=== PATIENT | male | born 2000 ===

== ENCOUNTER 2018-09-03 14:32 | Emergency (ER) | payer SELFPAY ==
[~2018-09-03 14:32] MED LIST: ACEC5L PO; AMO250L PO; NO MEDS
--- NOTE | 2018-09-03 15:16 | ER Report ---
History and Physical Time Seen By MD: 15:15 Hx. of Stated Complaint: patient reports numbness in the extremities, and he can "feel my heart vibrating" Has been going on for about a week but got worse when doing PT HPI/ROS CHIEF COMPLAINT: dizzy, sob, paresthesias HISTORY OF PRESENT ILLNESS: PT was running today in PT and felt sob, dizzy, blurred vision, heart palpating, and then numbness to hands. PT then felt his a cuauhtemoc were heavy and hard to move. Pt does run in PT often so this was new. Pt was sick the last week with runny nose and cough. no fevers. Pt states his burred vision, dizziness has gone. Pts hands are "almost all better... I still feel some tinging in pinkys". Pt has no cardiac or pulmonary hx. pt denies pain in legs. REVIEW OF SYSTEMS: Constitutional: No fever, no chills. Eyes: No discharge, blurred vision ENT: No sore throat. Cardiovascular: No chest pain, + palpitations. Respiratory: No cough, + shortness of breath. Gastrointestinal: No abdominal pain, no vomiting. Genitourinary: No hematuria. Musculoskeletal: No back pain. Skin: No rashes. Neurological: No headache, + dizziness, parathesias b/l extremities Allergies: Coded Allergies: No Known Drug Allergies (Verified Allergy, Mild, 06/06/07) Home Meds Reported Medications Acetaminophen/Codeine (Tylenol Codeine Elixir) 5 Ml Elix, 5 ML PO Q4H, #1 0 Refills 1 TEASPOON EVERY 4 HOURS NEEDED FOR PAIN 06/06/07 Amoxicillin (Amoxil) 250 Mg/5 Ml Susp, 0 PO Q8H for 10 Days 9ml THREE TIMES A DAY FOR 10 DAYS 06/06/07 [No Meds] No Conflict Check 06/06/07 Past Medical/Surgical History Pmhx and Pshx: pt denies Reviewed Nurses Notes: Yes Old Medical Records Reviewed: Yes Hx Smoking: No Hx Alcohol Use: No Constitutional Vital Sign - Last 24 Hours 09/03/18 09/03/18 09/03/18 09/03/18 14:36 14:36 14:53 14:59 Temp 98.3 Pulse 133 Resp 16 B/P (MAP) 115/99 115/99 (104) 64/48 (53) 86/56 (66) Pulse Ox 93 O2 Delivery Room Air 09/03/18 09/03/18 09/03/18 09/03/18 15:00 15:02 15:30 15:32 Pulse 109 105 Resp 11 18 B/P (MAP) 89/66 (74) 104/67 (79) Pulse Ox 93 90 09/03/18 09/03/18 09/03/18 09/03/18 15:37 15:52 16:00 16:07 Pulse 94 104 88 Resp 11 12 11 B/P (MAP) 101/69 (80) Pulse Ox 92 93 96 09/03/18 09/03/18 09/03/18 09/03/18 16:22 16:30 16:37 16:52 Pulse 92 90 92 Resp 15 14 10 B/P (MAP) 110/76 (87) Pulse Ox 97 95 96 09/03/18 09/03/18 09/03/18 09/03/18 17:00 17:07 17:22 17:23 Pulse 97 95 93 Resp 8 10 16 B/P (MAP) 108/76 (87) Pulse Ox 97 95 97 09/03/18 09/03/18 09/03/18 09/03/18 17:30 17:38 17:53 18:00 Pulse 92 97 92 Resp 16 6 B/P (MAP) 118/69 (85) Pulse Ox 95 96 09/03/18 18:00 Pulse 92 B/P (MAP) 107/75 (86) Physical Exam General Appearance: The patient is alert, has no immediate need for airway protection and no signs of toxicity. Eyes: Pupils equal and round no pallor or injection, EOMI ENT: no pharyngeal erythema or exudates, Mucous membranes are moist Respiratory: There are no retractions, lungs are clear to auscultation. Cardiovascular: + tachy, pulses are equal and symmetrical Gastrointestinal: Abdomen is soft and non tender, no masses, bowel sounds normal, no guarding, no rigidity or rebound Neurological: Cranial nerves II-XII grossly intact, no sensory or motor loss Skin: Warm and dry, no rashes. Musculoskeletal: Neck is supple non tender, no vertebral tenderness Extremities are nontender, non swollen and have full range of motion. DIFFERENTIAL DIAGNOSIS: After history and physical exam differential diagnosis was considered for hyperventilation, dehydration, pneumonia, bronchitis, electrolyte abnl, arrhythmia Medical Decision Making Data Points Result Diagram: 09/03/18 1450 09/03/18 1708 Laboratory Hematology Test 09/03/18 14:50 09/03/18 17:08 Red Blood Count 5.67 M/uL (4.00-5.60) Mean Corpuscular Volume 87.6 fL (80.0-96.0) Mean Corpuscular Hemoglobin 30.2 pg (26.0-33.0) Mean Corpuscular Hemoglobin Concent 34.5 g/dL (32.0-36.0) Red Cell Distribution Width 12.7 % (11.5-14.5) Mean Platelet Volume 7.7 fL (7.2-11.1) Neutrophils (%) (Auto) 67.9 % (39.4-72.5) Lymphocytes (%) (Auto) 24.9 % (17.6-49.6) Monocytes (%) (Auto) 6.1 % (4.1-12.4) Eosinophils (%) (Auto) 0.6 % (0.4-6.7) Basophils (%) (Auto) 0.5 % (0.3-1.4) Nucleated RBC Relative Count (auto) 0.0 /100WBC Neutrophils # (Auto) 5.7 K/uL (2.0-7.4) Lymphocytes # (Auto) 2.1 K/uL (1.3-3.6) Monocytes # (Auto) 0.5 K/uL (0.3-1.0) Eosinophils # (Auto) 0.0 K/uL (0.0-0.5) Basophils # (Auto) 0.0 K/uL (0.0-0.1) Nucleated RBC Absolute Count (auto) 0.00 K/uL Magnesium Level 2.0 mg/dl (1.7-2.2) Total Creatine Kinase 329 U/L (55-170) Sodium Level 139 mmol/L (137-145) Potassium Level 3.4 mmol/L (3.5-5.0) Chloride Level 107 mmol/L (98-107) Carbon Dioxide Level 25 mmol/L (22-30) Blood Urea Nitrogen 10 mg/dl (9-21) Creatinine 1.10 mg/dl (0.66-1.25) Glomerular Filtration Rate Calc > 60.0 Random Glucose 79 mg/dl (75-110) Calcium Level 8.3 mg/dl (8.4-10.2) Total Bilirubin 0.7 mg/dl (0.2-1.3) Aspartate Amino Transf (AST/SGOT) 50 U/L (0-35) Alanine Aminotransferase (ALT/SGPT) 107 U/L (0-56) Alkaline Phosphatase 63 U/L (0-126) Total Protein 6.4 g/dl (6.3-8.2) Albumin 3.9 g/dl (3.5-5.0) Chemistry Test 09/03/18 14:50 09/03/18 17:08 White Blood Count 8.4 k/uL (4.5-11.0) Red Blood Count 5.67 M/uL (4.00-5.60) Hemoglobin 17.1 g/dL (14.0-18.0) Hematocrit 49.7 % (42.0-52.0) Mean Corpuscular Volume 87.6 fL (80.0-96.0) Mean Corpuscular Hemoglobin 30.2 pg (26.0-33.0) Mean Corpuscular Hemoglobin Concent 34.5 g/dL (32.0-36.0) Red Cell Distribution Width 12.7 % (11.5-14.5) Platelet Count 347 K/uL (150-450) Mean Platelet Volume 7.7 fL (7.2-11.1) Neutrophils (%) (Auto) 67.9 % (39.4-72.5) Lymphocytes (%) (Auto) 24.9 % (17.6-49.6) Monocytes (%) (Auto) 6.1 % (4.1-12.4) Eosinophils (%) (Auto) 0.6 % (0.4-6.7) Basophils (%) (Auto) 0.5 % (0.3-1.4) Nucleated RBC Relative Count (auto) 0.0 /100WBC Neutrophils # (Auto) 5.7 K/uL (2.0-7.4) Lymphocytes # (Auto) 2.1 K/uL (1.3-3.6) Monocytes # (Auto) 0.5 K/uL (0.3-1.0) Eosinophils # (Auto) 0.0 K/uL (0.0-0.5) Basophils # (Auto) 0.0 K/uL (0.0-0.1) Nucleated RBC Absolute Count (auto) 0.00 K/uL Magnesium Level 2.0 mg/dl (1.7-2.2) Total Creatine Kinase 329 U/L (55-170) Glomerular Filtration Rate Calc > 60.0 Calcium Level 8.3 mg/dl (8.4-10.2) Total Bilirubin 0.7 mg/dl (0.2-1.3) Aspartate Amino Transf (AST/SGOT) 50 U/L (0-35) Alanine Aminotransferase (ALT/SGPT) 107 U/L (0-56) Alkaline Phosphatase 63 U/L (0-126) Total Protein 6.4 g/dl (6.3-8.2) Albumin 3.9 g/dl (3.5-5.0) EKG/Imaging EKG Interpretation nsr @ 95 with no acute changes noted Imaging [facility] ED Course/Re-evaluation Clinical Indication for ER IV: Hydration, IV Access ED Course check labs, cxr, ekg and start fluids 09/03/2018 3:57:09 pm PTs labs are back. Pt is dehydrated with a bump in his liver enzymes. will add a cpk level and give fluids. Will recheck labs after two liters nss 09/03/2018 5:59:44 pm Pts symptoms resolved after two liters NS. pt feeling better. 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 Pt given instructions for patient portal. Pt also told he can call medical records on Thursday. Pt needs clearance for deployment. I suspect pts elevated liver enzymes may be related to his recent illness as well as stress of exertion today. Pt encouraged to have recheck of his labs prior to his deployment. Pt also instructed to drink water or gatorade/poweraid for hydration and electrolytes. Decision to Disposition Date: Sep 03, 2018 Decision to Disposition Time: 18:02 Depart Departure Latest Vital Signs Vital Signs Date Time Temp Pulse Resp B/P (MAP) Pulse Ox O2 Delivery O2 Flow Rate FiO2 09/03/18 18:00 92 107/75 (86) 09/03/18 17:53 6 96 09/03/18 14:36 98.3 Room Air Impression: Primary Impression: Dehydration Additional Impressions: Elevated liver function tests Hypokalemia Condition: Improved Disposition: HOME OR SELF-CARE Patient Instructions: Dehydration (ED) Additional Instructions: Your blood work on arrival showed you to be dehydrated. We replaced two liters of Normal Saline which showed some improvement of your blood work. Your blood work also shows a bump in your liver enzymes. Recommend you have your labs repeated in a week to make sure that there is improvement before you are deployed. Remember to drink plenty of water. Recommend no exertional activity for the next 24 hours. Problem Qualifiers ALIDA PIERRE DO Sep 03, 2018 15:16
[2018-09-03] MEDS ORDERED: NS(*) 0.9% 1000 ML BAG 1,000 ML IV ONE ×2 (15:25→16:20)
[2018-09-03 15:46] LABS: PLATELET COUNT, AUTOMATED 347 K/uL (150-450)
--- NOTE | 2018-09-03 15:53 | EKG ---
FACILITY: [facility] - [place] PATIENT NAME: COREY TURPIN : [id number] MR: [id number] V: [id number] EXAM DATE: ORDERING PHYSICIAN: ALIDA PIERRE TECHNOLOGIST: Test Reason : Blood Pressure : / mmHG Vent. Rate : 095 BPM Atrial Rate : 095 BPM P-R Int : 154 ms QRS Dur : 084 ms QT Int : 338 ms P-R-T Axes : 078 081 060 degrees QTc Int : 424 ms Normal sinus rhythm Normal ECG No previous ECGs available Confirmed by Reza Gilman ([id number]) on 09/03/2018 6:21:18 PM Referred By: Confirmed By:Reza Cooper
--- NOTE | 2018-09-03 16:25 | RADIOLOGY IMAGING REPORT ---
[place] [facility] [place] NAME: Dalton Feliciano : 2000 MR: [id number] V: [id number] EXAM DATE: ORDERING PHYSICIAN: ALIDA PIERRE TECHNOLOGIST: Location: [facility] [place] Patient: Dalton Felciiano : 2000 Visit/Account:[id number] Date of Sevice: 09/03/2018 Examination: CHEST PA LAT Comparison: None. History: Shortness of breath. Findings: Cardiac and hilar contour size is within normal limits. No consolidation, nodule, or peribr onchial inflammation. No pneumothorax, edema, or effusion. Osseous structures are intact. IMPRESSION: Negative chest. Report Dictated By: Jose Mancuso MD at 09/03/2018 4:18 PM Report E-Signed By: Jose Mancuso MD at 09/03/2018 4:21 PM [id number]
[2018-09-03 18:00] VITALS: BP 107/75
[2018-09-03] MEDS ORDERED: POTASSIUM CHL 20 MEQ TABCR PO ONE (18:05)
== END 2018-09-03 18:31 | disposition home or self-care (01) ==
LOC: ER 15:17
DX: E86.0 Dehydration (principal); R79.89 Other specified abnormal findings of blood chemistry; E87.6 Hypokalemia
CPT/HCPCS: 71046; 82550; 83735; 84443; 85025; 93005; 96360; 99284; J7030; 82040; 82247; 82310; 82374; 82435; 82565; 82947; 84075; 84132; 84155; 84295; 84450; 84460; 84520